=== PATIENT | female | born 1985 | race Caucasian/White ===

== ENCOUNTER 2022-02-04 16:22 | Emergency (ER) | payer OTHER ==
[~2022-02-04] VITALS: Ht 157.5 cm; Wt 68.9 kg
[2022-02-04 16:39] VITALS: BP 145/92
--- NOTE | 2022-02-04 16:51 | NUR ---
[facility]: RIGHT EYE 20/40, LEFT EYE 20/40, BOTH EYE 20/40
--- NOTE | 2022-02-04 16:51 | NUR ---
Sherri corley in [facility] - 02/04/22 at 1651 by [email or web address] [facility]: RIGHT EYE 20/40, LEFT EYE 20/40, BOTH EYE 20/40
[2022-02-04 17:40] LABS: BASOPHILS # (AUTO) 0.1 K/uL (0.00-0.22); BASOPHILS % (AUTO) 0.7 % (0.0-2.0); EOSINOPHILS # (AUTO) 0.1 K/uL (0-0.4); EOSINOPHILS % (AUTO) 0.6 % (0.0-4.0); HEMATOCRIT 43.1 % (36-48); HEMOGLOBIN 14.3 g/dL (12.0-16.0); LYMPHOCYTES # (AUTO) 2.6 K/uL (2.5-16.5); LYMPHOCYTES % (AUTO) 21.7 % (20.5-51.1); MEAN CORPUSCULAR HEMOGLOBIN 30 pg (27-31); MEAN CORPUSCULAR HGB CONC 33 g/dL (33-37); MONOCYTES # (AUTO) 0.7 K/uL (0.8-1.0); MONOCYTES % (AUTO) 6.2 % (1.7-9.3); NEUTROPHILS # (AUTO) 8.3 K/uL (1.8-7.7); NEUTROPHILS % (AUTO) 70.8 % (42.2-75.2); PLATELET COUNT (AUTO) 386 K/uL (140-450); RED BLOOD CELL COUNT(AUTO) 4.74 MIL/uL (4.20-5.40); RED CELL DISTRIBUTION WIDTH 13.2 % (11.6-13.7); WHITE BLOOD COUNT (AUTO) 11.8 K/uL (4.8-10.8)
[2022-02-04 17:54] LABS: APPEARANCE,URINE CLEAR (CLEAR); BILIRUBIN,URINE NEGATIVE (NEGATIVE); BLOOD, URINE TRACE-I (NEGATIVE); COLOR,URINE ORANGE (YELLOW); LEUKOCYTE ESTERASE ,URINE NEGATIVE (NEGATIVE); NITRITE, URINE NEGATIVE (NEGATIVE); UGLUCOSE NEGATIVE (NEGATIVE)
[2022-02-04 17:57] LABS: RBC,URINE 0-5 /HPF (0-5); WBC,URINE NONE SEEN /HPF (0-5)
[2022-02-04 18:00] LABS: BARBITURATE, URINE NEGATIVE ng/ml (NEG <=200); BENZODIAZEPINE, URINE NEGATIVE ng/mL (NEG <=200); CANNABINOID, URINE NEGATIVE ng/mL (NEG <=50); COCAINE, URINE NEGATIVE ng/mL (NEG <=300); OPIATE, URINE NEGATIVE ng/mL (NEG <=2000); PHENCYCLIDINE SCREEN,URINE NEGATIVE ng/mL (NEG <=25)
[2022-02-04 18:06] LABS: ALBUMIN 4.1 g/dL (3.4-5.0); ANION GAP 14.7 (8-16); ASPARTATE AMINOTRANSFERASE 15 U/L (15-37); CARBON DIOXIDE 28.2 mmol/L (21-32); CHLORIDE 103 mmol/L (98-107); CREATININE 0.7 mg/dL (0.6-1.3); GFR ARICAN-AMERICAN 122 mL/min (>90); GLUCOSE 96 mg/dL (74-106); POTASSIUM 3.9 mmol/L (3.5-5.1); SODIUM SERUM 142 mmol/L (136-145); THYROID STIMULATING HORMONE 0.43 uIU/mL (0.34-3.74); TOTAL BILIRUBIN 0.4 mg/dL (0.0-1.0); UREA NITROGEN, BLOOD 11 mg/dL (7-18)
[2022-02-04 18:07] LABS: SALICYLATE < 2.8 mg/dL (2.8-20.0)
[2022-02-04 18:08] LABS: ACETAMINOPHEN < 0.5 ug/ml (10-30)
[2022-02-04 18:44] VITALS: BP 145/92
== END 2022-02-04 18:44 | disposition home or self-care (01) ==
LOC: MED 16:22
DX: T50.993A Poisoning by other drugs, medicaments and biological substances, assault, initial encounter (principal); Y92.89 Other specified places as the place of occurrence of the external cause
CPT/HCPCS: 36415; 80053; 80305; 81001; 81025; 84443; 85025; 93005; 99284; G0480; G0482

== ENCOUNTER 2022-02-09 04:54 | Emergency (ER) | payer OTHER ==
[~2022-02-09] VITALS: Ht 157.5 cm; Wt 68.9 kg
[2022-02-09 04:59] VITALS: BP 136/100
--- NOTE | 2022-02-09 05:03 | NUR ---
PT TAKEN BED 8
--- NOTE | 2022-02-09 05:19 | NUR ---
ER AT BEDSIDE
[2022-02-09] MEDS ORDERED: MECLIZINE 25 MG TAB PO ONE (05:25)
[2022-02-09] MEDS ORDERED: NACL 0.9% 1,000 ML IV ONE (05:25)
[2022-02-09] MEDS ORDERED: METOCLOPRAMIDE 10 MG/2 ML INJ VIAL IVP ONE (05:25)
--- NOTE | 2022-02-09 06:08 | NUR ---
PATIENT DECLINED MEDS Addendum: 02/09/22 at 0621 by [email or web address] PT REFUSED MEDS; TERRY WALSH MADE AWARE
--- NOTE | 2022-02-09 06:09 | NUR ---
22G IV CATH PLACED L AC. LABS COLLECTED AND WALKED TO LAB
--- NOTE | 2022-02-09 06:35 | NUR ---
PT RESTING COMFORTABLY, RESP EVEN AND UNLABORED. PT DENIES ANY PAIN.
[2022-02-09 06:37] LABS: BASOPHILS % (AUTO) 0.3 % (0.0-2.0); EOSINOPHILS # (AUTO) 0.1 K/uL (0-0.4); EOSINOPHILS % (AUTO) 1.4 % (0.0-4.0); HEMATOCRIT 42.5 % (36-48); LYMPHOCYTES # (AUTO) 1.7 K/uL (2.5-16.5); LYMPHOCYTES % (AUTO) 20.7 % (20.5-51.1); MEAN CORPUSCULAR HEMOGLOBIN 31 pg (27-31); MEAN CORPUSCULAR HGB CONC 33 g/dL (33-37); MEAN CORPUSCULAR VOLUME 92.2 fL (80-94); MONOCYTES # (AUTO) 0.5 K/uL (0.8-1.0); MONOCYTES % (AUTO) 6.7 % (1.7-9.3); NEUTROPHILS # (AUTO) 5.8 K/uL (1.8-7.7); NEUTROPHILS % (AUTO) 70.9 % (42.2-75.2); PLATELET COUNT (AUTO) 321 K/uL (140-450); RED BLOOD CELL COUNT(AUTO) 4.61 MIL/uL (4.20-5.40); RED CELL DISTRIBUTION WIDTH 13.1 % (11.6-13.7); WHITE BLOOD COUNT (AUTO) 8.2 K/uL (4.8-10.8)
[2022-02-09 06:39] LABS: ALBUMIN 3.7 g/dL (3.4-5.0); ASPARTATE AMINOTRANSFERASE 14 U/L (15-37); CHLORIDE 106 mmol/L (98-107); CREATININE 0.7 mg/dL (0.6-1.3); GFR ARICAN-AMERICAN 122 mL/min (>90); GLUCOSE 110 mg/dL (74-106); SODIUM SERUM 141 mmol/L (136-145); TOTAL BILIRUBIN 0.2 mg/dL (0.0-1.0); UREA NITROGEN, BLOOD 17 mg/dL (7-18)
--- NOTE | 2022-02-09 07:20 | NUR ---
Recieved report from ANGEL Corral for transfer of care.
[2022-02-09 07:40] LABS: BARBITURATE, URINE NEGATIVE ng/ml (NEG <=200); BENZODIAZEPINE, URINE NEGATIVE ng/mL (NEG <=200); CANNABINOID, URINE NEGATIVE ng/mL (NEG <=50); COCAINE, URINE NEGATIVE ng/mL (NEG <=300); OPIATE, URINE NEGATIVE ng/mL (NEG <=2000); PHENCYCLIDINE SCREEN,URINE NEGATIVE ng/mL (NEG <=25)
[2022-02-09 07:51] VITALS: BP 136/73
== END 2022-02-09 07:51 | disposition home or self-care (01) ==
LOC: MED 04:54
DX: R42 Dizziness and giddiness (principal); Z88.1 Allergy status to other antibiotic agents; Z88.2 Allergy status to sulfonamides
CPT/HCPCS: 36415; 80053; 80305; 81002; 81025; 84484; 84702; 85025; 93005; 96360; 96361; 99284; G0482; J7030; J2765; J8597

== ENCOUNTER 2022-03-04 17:25 | Emergency (ER) | payer OTHER ==
[~2022-03-04] VITALS: Ht 154.9 cm; Wt 79.4 kg
[2022-03-04 17:30] VITALS: BP 142/93
--- NOTE | 2022-03-04 19:32 | NUR ---
CALLED LAB TO F/U ON [facility] RESULT. PER LAB, [facility] IS NOW A SEND OUT. UNKNOWN ETA FOR RESULT. MIKE METCALF NOTIFIED
--- NOTE | 2022-03-04 19:37 | NUR ---
PT CLEARED FOR DISCHARGE BY MIKE METCALF. PT PROVIDED WITH DISCHARGE INSTRUCTIONS. ALL QUESTIONS ASKED AND ANSWERED PRIOR TO DEPARTURE.
[2022-03-05 00:33] LABS: BARBITURATE, URINE NEGATIVE ng/ml (NEG <=200); BENZODIAZEPINE, URINE NEGATIVE ng/mL (NEG <=200); CANNABINOID, URINE NEGATIVE ng/mL (NEG <=50); COCAINE, URINE NEGATIVE ng/mL (NEG <=300); OPIATE, URINE NEGATIVE ng/mL (NEG <=2000); PHENCYCLIDINE SCREEN,URINE NEGATIVE ng/mL (NEG <=25)
== END 2022-03-04 19:37 | disposition home or self-care (01) ==
LOC: MED 17:25
DX: R42 Dizziness and giddiness (principal); R51.9 Headache, unspecified; R68.2 Dry mouth, unspecified; Z88.1 Allergy status to other antibiotic agents; Z88.2 Allergy status to sulfonamides
CPT/HCPCS: 80305; 81002; 81025; 99283

== ENCOUNTER 2022-04-15 06:45 | Emergency (ER) | payer OTHER ==
[~2022-04-15] VITALS: Ht 154.9 cm; Wt 76.2 kg
[2022-04-15 06:50] VITALS: BP 147/93
--- NOTE | 2022-04-15 06:53 | NUR ---
TO LOBBY A/W BED AMBULATORY
--- NOTE | 2022-04-15 07:40 | NUR ---
Dr Richmond with pt explaining test results
--- NOTE | 2022-04-15 07:43 | NUR ---
Patient being evaluated by FROYLAN at [facility].
--- NOTE | 2022-04-15 08:18 | NUR ---
Patient discharged with v/s stable. Written and verbal after care instructions given and explained. Patient verbalized understanding. Ambulatory with steady gait. All questions addressed prior to discharge. Advised to follow up with PMD. Imaging CD and copy of CT results handed to patient.
== END 2022-04-15 08:18 | disposition home or self-care (01) ==
LOC: MED 06:45
DX: R51.9 Headache, unspecified (principal); Z88.1 Allergy status to other antibiotic agents; Z88.2 Allergy status to sulfonamides
CPT/HCPCS: 70450; 99284